=== PATIENT | female | born 1985 | race Caucasian/White ===

== ENCOUNTER → 2021-01-04 | Outpatient (CLI) | payer OTHER ==
[~2021-01-04] MED LIST: GADOTERATE MEGLUMINE 10 MMOL/20 ML VIAL IVP ONE
== END | disposition home or self-care (01) ==
LOC: RADMN 08:30
PROVIDERS: ATTEND Assistant, Podiatric
DX: M72.2 Plantar fascial fibromatosis (principal)
CPT/HCPCS: 73720; Q9967